=== PATIENT | female | born 1995 | race Caucasian/White ===

== ENCOUNTER 2024-04-29 07:35 | Inpatient (IN) | payer OTHER ==
[2024-04-29] MEDS ORDERED: AMPICILLIN SODIUM 2 GM VIAL ONE (08:14)
[2024-04-29] MEDS: AMPICILLIN - 2 GM in SODIUM CHLORIDE 100 ML IVPB ONE (08:20)
[2024-04-29 08:57] LABS: INR 0.92 (0.83-1.09); PROTHROMBIN TIME (PATIENT) 10.4 SEC (9.7-13.0)
[2024-04-29 09:00] LABS: ACTIVATED PTT 28.2 SECONDS (25.2-36.5)
[2024-04-29] MEDS: LACTATED RINGERS SOLUTION 500 ML IV ONE (09:00)
[2024-04-29 09:02] LABS: BASO % 0.2 % (0-2.0); EOS % 0.5 % (0-4.5); HEMATOCRIT 36.8 % (32.4-45.2); HEMOGLOBIN 12.5 GM/dL (10.7-15.3); LYMPH % 15.9 % (8-40); MCH 29.6 pg (25.7-33.7); MEAN CELL VOLUME 87.1 fl (80-96); MEAN PLT VOLUME 9.6 fl (7.5-11.1); MONO % 4.8 % (3.8-10.2); NEUT % 78.6 % (42.8-82.8); PLATELET COUNT 211 10^3/uL (134-434); RBC 4.23 M/mm3 (3.60-5.2); RDW 13.7 % (11.6-15.6); WHITE BLOOD COUNT 12.2 K/mm3 (4.0-10.0)
[2024-04-29] MEDS ORDERED: MAGNESIUM 4GM/H20 - 4 GM/100 ML IVPB IVPB ONE (09:03)
[2024-04-29 09:06] LABS: POTASSIUM 3.9 mmol/L (3.5-5.1)
[2024-04-29 09:08] VITALS: BMI 30.1
[2024-04-29 09:09] LABS: BLOOD UREA NITROGEN 10.3 mg/dL (7-18); CALCIUM 8.8 mg/dL (8.5-10.1); MAGNESIUM 1.6 mg/dL (1.8-2.4)
[2024-04-29] MEDS: MAGNESIUM 4GM/H20 - 4 GM/100 ML IVPB IVPB ONE (09:09)
[2024-04-29 09:12] LABS: CREATININE 0.6 mg/dL (0.55-1.3)
[2024-04-29] MEDS ORDERED: NALOXONE HCL 0.4 MG/ML VIAL IVPUSH PRN (09:45)
[2024-04-29] MEDS ORDERED: BUPIVACAINE HCL/PF 0.25% (2.5MG/ML) 10 ML VIAL ONE (09:51)
[2024-04-29] MEDS ORDERED: FENTANYL CITRATE/PF 50 MCG/ML VIAL ONE (09:51)
[2024-04-29] MEDS ORDERED: FENTANYL/BUPIVACAINE/NS/PF - PCEA - 50 ML DISP.SYRIN EP ONE ×2 (09:55→14:53)
[2024-04-29] MEDS: LACTATED RINGERS SOLUTION 1,000 ML IV SCH (10:00)
[2024-04-29] MEDS: FENTANYL/BUPIVACAINE/NS/PF - PCEA - 50 ML DISP.SYRIN EP SCH (10:10)
[2024-04-29] MEDS ORDERED: MAGNESIUM SULFATE 20GM/500ML - 20 GM/500 ML INFUS.BAG ONE (10:25)
[2024-04-29] MEDS: MAGNESIUM SULFATE 20GM/500ML - 20 GM/500 ML INFUS.BAG IVPB SCH (10:38)
[2024-04-29] MEDS ORDERED: AMPICILLIN SODIUM 1 GM VIAL ONE (12:30)
[2024-04-29] MEDS: AMPICILLIN - 1 GM in SODIUM CHLORIDE 100 ML IVPB SCH (12:31)
[2024-04-29] MEDS ORDERED: oxyCODONE HCL 5 MG TABLET PO PRN (13:59)
[2024-04-29] MEDS ORDERED: BISACODYL 10 MG SUPP.RECT RC PRN (13:59)
[2024-04-29] MEDS ORDERED: METHYLERGONOVINE MALEATE 0.2 MG/1 ML AMP IM PRN (13:59)
[2024-04-29 14:24] LABS: HIV INTERPRETATION NEGATIVE (NEGATIVE)
[2024-04-29] MEDS: OXYTOCIN 20 UNITS in 0.9% NS 20 UNIT/1,000 ML INFUS.BAG IV SCH (15:18)
[2024-04-29 16:32] LABS: CORD HCO3 21.3 mmHg (20-29); CORD pH 7.256 (7.14-7.44)
[2024-04-29 16:33] LABS: CORD BASE EXCESS -4.3 mmol/L (0-2); CORD HCO3 24.4 mmHg (20-29); CORD PCO2 62.8 mmHg (30-78); CORD pH 7.208 (7.14-7.44)
[2024-04-29] MEDS ORDERED: OXYTOCIN 20 UNITS in 0.9% NS 20 UNIT/1,000 ML INFUS.BAG IV ONE (18:09)
[2024-04-29] MEDS: IBUPROFEN 600 MG TABLET (FP) PO PRN (20:08)
[2024-04-29] MEDS: ACETAMINOPHEN 325 MG TABLET (FP) PO PRN (22:34)
[2024-04-30] MEDS: FERROUS SO4 325 MG TABLET (FP) PO SCH (03:31)
[2024-04-30] MEDS: AMPICILLIN - 1 GM in SODIUM CHLORIDE 100 ML IVPB SCH (06:12)
[2024-04-30 07:29] LABS: HEMATOCRIT 30.5 % (32.4-45.2); HEMOGLOBIN 10.2 GM/dL (10.7-15.3); MCH 29.4 pg (25.7-33.7); MCHC 33.5 g/dl (32.0-36.0); MEAN CELL VOLUME 87.9 fl (80-96); MEAN PLT VOLUME 9.8 fl (7.5-11.1); PLATELET COUNT 204 10^3/uL (134-434); RBC 3.47 M/mm3 (3.60-5.2); RDW 13.9 % (11.6-15.6); WHITE BLOOD COUNT 22.6 K/mm3 (4.0-10.0)
[2024-04-30 08:47] LABS: PLATELET ESTIMATE ADEQUATE
[2024-04-30] MEDS: PRENATAL VITAMINS W/ FOLIC ACID TABLET (FP) PO SCH (10:31)
[2024-04-30] MEDS: SENNOSIDES/DOCUSATE COMBO (SENNA PLUS) TABLET (UD) PO PRN (20:33)
[2024-05-01 09:07] LABS: BASO % 0.2 % (0-2.0); EOS % 0.3 % (0-4.5); HEMOGLOBIN 10.6 GM/dL (10.7-15.3); LYMPH % 21.3 % (8-40); MCH 29.5 pg (25.7-33.7); MCHC 34.1 g/dl (32.0-36.0); MEAN CELL VOLUME 86.5 fl (80-96); MEAN PLT VOLUME 9.4 fl (7.5-11.1); MONO % 3.5 % (3.8-10.2); NEUT % 74.7 % (42.8-82.8); PLATELET COUNT 202 10^3/uL (134-434); RBC 3.58 M/mm3 (3.60-5.2); RDW 14.1 % (11.6-15.6); WHITE BLOOD COUNT 16.4 K/mm3 (4.0-10.0)
[2024-05-01] MEDS: AMOX TR/POT CLAV 500MG/125MG TABLETS (FP) PO SCH (16:54)
[2024-05-01] MEDS: WITCH HAZEL 50% (TUCKS) 40 PAD/JAR PAD TP PRN (21:43)
[2024-05-01] MEDS: BENZOCAINE 20% 57 GM BOTTLE TP PRN (21:43)
[2024-05-01] MEDS: BENZOCAINE 28 GM HEMORRHOIDAL OINTMENT TP PRN (21:44)
[2024-05-01 22:06] VITALS: RESP 18
[2024-05-02 09:13] VITALS: BP 114/59; PULSE 79; TEMP 98.6
== END 2024-05-02 12:30 | disposition home or self-care (01) | DRG 560 ==
LOC: JLDR 07:35 → J3W 18:25
PROVIDERS: ADMIT Obstetrics & Gynecology; ATTEND Obstetrics & Gynecology
PROC: 10E0XZZ Delivery of Products of Conception, External Approach (ICD-10-PCS; principal; 2024-04-29)
PROC: 0HQ9XZZ Repair Perineum Skin, External Approach (ICD-10-PCS; 2024-04-29)
DX: O60.14X0 Preterm labor third trimester with preterm delivery third trimester, not applicable or unspecified (principal); O70.0 First degree perineal laceration during delivery; D72.829 Elevated white blood cell count, unspecified; O46.93 Antepartum hemorrhage, unspecified, third trimester; Z3A.33 33 weeks gestation of pregnancy; Z37.0 Single live birth
CPT/HCPCS: 36415; 36600; 59409; 80048; 82803; 83735; 85025; 85610; 85730; 86780; 86803; 86850; 86900; 86901; 87389

== ENCOUNTER 2024-05-29 12:50 | Emergency (ER) | payer OTHER ==
[2024-05-29 13:02] VITALS: RESP 18; BMI 31.6
[2024-05-29] MEDS ORDERED: CEPHALEXIN MONOHYDRATE 500 MG CAPSULE (UD) ONE (13:55)
[2024-05-29] MEDS ORDERED: ACETAMINOPHEN INJECTION 100 ML ONE (13:55)
[2024-05-29] MEDS: CEPHALEXIN MONOHYDRATE 500 MG CAPSULE (UD) PO ONE (14:17)
[2024-05-29] MEDS: ACETAMINOPHEN 1000 MG/100 ML BAG IVPB ONE (14:17)
[2024-05-29] MEDS: SODIUM CHLORIDE 0.9% 500 ML INFUS.BAG IV ONE (14:17)
[2024-05-29 14:19] LABS: VENOUS BASE EXCESS 1.1 mmol/L (-2-2); VENOUS O2 SATURATION 21.6 % (70-80); VENOUS PH 7.388 (7.310-7.410)
[2024-05-29 14:23] LABS: BASO % 0.4 % (0-2.0); EOS % 0.1 % (0-4.5); HEMATOCRIT 38.7 % (32.4-45.2); HEMOGLOBIN 13.2 GM/dL (10.7-15.3); LYMPH % 11.1 % (8-40); MCH 28.9 pg (25.7-33.7); MCHC 34.2 g/dl (32.0-36.0); MEAN CELL VOLUME 84.4 fl (80-96); MEAN PLT VOLUME 8.7 fl (7.5-11.1); MONO % 7.3 % (3.8-10.2); NEUT % 81.1 % (42.8-82.8); PLATELET COUNT 222 10^3/uL (134-434); RBC 4.58 M/mm3 (3.60-5.2); RDW 14.5 % (11.6-15.6); WHITE BLOOD COUNT 9.7 K/mm3 (4.0-10.0)
[2024-05-29 14:25] LABS: EPI CELLS >36 /uL (0-25.1); HYALINE CASTS 2 /uL (0-3.1); PH,URINE 8.5 (5.0-8.0); URINE APPEARANCE CLOUDY; URINE BACTERIA 2603 /uL (0-1359); URINE BILIRUBIN NEGATIVE (NEGATIVE); URINE COLOR YELLOW; URINE GLUCOSE (UA) NEGATIVE (NEGATIVE); URINE KETONE TRACE (NEGATIVE); URINE LEUK ESTERASE 3+ (NEGATIVE); URINE NITRITE NEGATIVE (NEGATIVE); URINE PROTEIN TRACE (NEGATIVE); URINE RBC 19 /uL (0-23.9); URINE UROBILINOGEN 0.2 mg/dL (0.2-1.0); URINE WBC 472 /uL (0-25.8)
[2024-05-29 14:30] LABS: INR 1.08 (0.83-1.09); PROTHROMBIN TIME (PATIENT) 12.2 SEC (9.7-13.0)
[2024-05-29 14:53] LABS: ALBUMIN 3.9 g/dl (3.4-5.0); CALCIUM 9.1 mg/dL (8.5-10.1)
[2024-05-29 14:54] LABS: BLOOD UREA NITROGEN 10.7 mg/dL (7-18)
[2024-05-29 14:57] LABS: CREATININE 0.8 mg/dL (0.55-1.3)
[2024-05-29 14:58] LABS: BILIRUBIN,TOTAL 0.5 mg/dL (0.2-1); TOT PROT 7.5 g/dl (6.4-8.2)
[2024-05-29 16:58] VITALS: TEMP 99.9
[2024-05-29 17:00] VITALS: BP 104/59; PULSE 91
== END 2024-05-29 17:41 | disposition home or self-care (01) ==
LOC: JER 12:50
PROC: 3E033NZ Introduction of Analgesics, Hypnotics, Sedatives into Peripheral Vein, Percutaneous Approach (ICD-10-PCS; principal; 2024-05-29)
DX: O91.22 Nonpurulent mastitis associated with the puerperium (principal); O99.893 Other specified diseases and conditions complicating puerperium; R50.9 Fever, unspecified; R05.9 Cough, unspecified; R00.0 Tachycardia, unspecified; Z20.822 Contact with and (suspected) exposure to COVID-19
CPT/HCPCS: 0241U-QW; 36415; 80053; 81003; 82803; 83605; 84484; 85025; 85610; 85651; 85730; 86140; 86850; 86900; 86901; 87040; 87086; 93005; 93010; 99284-25; J0131